=== PATIENT | female | born 1970 | race Caucasian/White ===

== ENCOUNTER → 2017-02-12 | Outpatient (CLI) | payer OTHER | END | disposition home or self-care (01) | LOC: CDC 14:05 | DX: Z01.810 Encounter for preprocedural cardiovascular examination (principal); M25.562 Pain in left knee; M17.12 Unilateral primary osteoarthritis, left knee; R94.31 Abnormal electrocardiogram [ECG] [EKG] | CPT/HCPCS: 93000 ==

== ENCOUNTER 2017-08-10 15:22 | Emergency (ER) | payer OTHER ==
[~2017-08-10] VITALS: Ht 165.1 cm; Wt 127.4 kg
[2017-08-10] MEDS ORDERED: FLEXERIL10 MG PO (17:57)
[2017-08-10 18:40] VITALS: BP 121/67
== END 2017-08-10 18:40 | disposition home or self-care (01) ==
LOC: EME 15:22
DX: S43.402A Unspecified sprain of left shoulder joint, initial encounter (principal); W19.XXXA Unspecified fall, initial encounter; E89.0 Postprocedural hypothyroidism; Z88.2 Allergy status to sulfonamides
CPT/HCPCS: 71045; 73030; 99281; 99284; J1885